=== PATIENT | female | born 1985 | race African-American/Black ===

== ENCOUNTER → 2018-03-04 | Outpatient (CLI) | payer BC ==
[~2018-03-04] MED LIST: BIOT1CAP8 PO; CETI10TA84 PO; DROS3TAB12 PO; ESCI1TAB6 PO; GLC500 PO; LORA-741 PO; PRED15SY16 PO
== END | disposition home or self-care (01) ==
LOC: C.RDSM 12:46
PROVIDERS: ATTEND Family Medicine
DX: M25.561 Pain in right knee (principal)

== ENCOUNTER → 2018-03-11 | Day surgery (SDC) | payer BC ==
[2018-03-04 14:27] VITALS: Ht 157.5 cm; Wt 116.4 kg
[~2018-03-11] VITALS: Ht 157.5 cm; Wt 116.4 kg
[~2018-03-11] MED LIST changes: -BIOT1CAP8 PO; -GLC500 PO; +LIDOCAINE HCL 2% 2 ML VIAL (20MG/ML) ONE; +ONDANSETRON INJ 2 MG/ML 2 ML VIAL IV PRN; -PRED15SY16 PO; +PROPOFOL IV EMULSION 10 MG/ML 20 ML VIAL ONE
--- NOTE | 2018-03-11 11:23 | Endo History and Physical ---
History & Physical Date of Service: Mar 11, 2018. Chief Complaint: history of polyps Referring Physician: Dr. Wright History of Present Illness Patient presents for a routine surveillance examination due to a personal history of colonic polyps. Her last examination was 5 years ago and appears to be within normal limits. She has no specific complaints or issues today. There is no family history of colorectal cancer stomach cancer or esophageal cancer. Past Surgical History Hx Cardiac Surgery: No Hx Internal Defibrillator: No Hx Pacemaker: No Hx Abdominal Surgery: No Hx of Implantable Prosthesis: No Hx Post-Op Nausea and Vomiting: Yes Hx Cancer Surgery: No Hx Thoracic Surgery: No Hx Orthopedic: Yes (L HAND SX) Hx Urinary Tract Surgery: No Family History Polyp Social History Smoking Status: Never Smoker Hx Substance Use: No Hx Alcohol Use: Yes (OCCASIONAL) Allergies Coded Allergies: NO KNOWN DRUG ALLERGIES (Verified Allergy, Unknown, none, 03/11/18) Current Medications Reported Home Medications Medications Dose Route/Sig Max Daily Dose Days Date Category Lamar 28 (Drospirenone-Ethinyl Estradiol) 1 Tab Tab 1 Tab PO HS 03/04/18 Reported Lexapro (Escitalopram Oxalate) 5 Mg Tab 5 Mg PO HS 03/04/18 Reported Zyrtec (Cetirizine HCl) 10 Mg Tab 10 Mg PO DAILY PRN 03/29/15 Reported Ativan (Lorazepam) 0.5 Mg Tab 0.5 Mg PO TID PRN 03/29/15 Reported Vital Signs Weight (Kilograms): 116.36 Height (Feet): 5 Height (Inches): 2 Date Time Temp Pulse Resp B/P (MAP) Pulse Ox O2 Delivery O2 Flow Rate FiO2 03/11/18 10:32 36.9 75 20 151/83 (105) 98 Room Air Physical Exam General Appearance: no apparent distress Respiratory/Chest: Auscultation: breath sounds normal Cardiovascular: Heart Auscultation: RRR Abdomen: Inspection & Palpation: soft Assessment and Plan Patient for colonoscopy today. We discussed the risks of the procedure to include perforation and missed colonic polyps.
--- NOTE | 2018-03-11 11:53 | Discharge Instructions ---
Endoscopy Patient Instructions Date / Procedure(s) Performed Mar 11, 2018. Colonoscopy Allergy Information Coded Allergies: NO KNOWN DRUG ALLERGIES (Verified Allergy, Unknown, none, 03/11/18) Discharge Date / Findings Mar 11, 2018. 1 colon polyp Nodular appearing ileocecal valve (biopsied) Medication Instructions Reported Home Medications Medications Dose Route/Sig Max Daily Dose Days Date Category Lamar 28 (Drospirenone-Ethinyl Estradiol) 1 Tab Tab 1 Tab PO HS 03/04/18 Reported Lexapro (Escitalopram Oxalate) 5 Mg Tab 5 Mg PO HS 03/04/18 Reported Zyrtec (Cetirizine HCl) 10 Mg Tab 10 Mg PO DAILY PRN 03/29/15 Reported Ativan (Lorazepam) 0.5 Mg Tab 0.5 Mg PO TID PRN 03/29/15 Reported Provider Instructions Activity Restrictions - No exercising or heavy lifting for 24 hours. - Do not drink alcohol the day of the procedure. - Do not drive a car or operate machinery until the day after the procedure. - Do not make any important decisions or sign important papers in 24 hours after the procedure. Following Day: - Return to full activity which may include returning to work/school. Diet Start your diet with liquids and light foods (jello, soup, juice, toast). Then eat your usual diet if not nauseated. Treatment For Common After Affects For mild abdominal pain, bloating, or excessive gas: - Rest - Eat lightly - Lie on right side Follow-Up Information Await pathology results, will most likely recommend a repeat examination in 5 years Anesthesia Information What You Should Know You have had a procedure that required some medicine to reduce anxiety and discomfort. This treatment is called moderate sedation. After receiving the treatment, you may be sleepy, but you will be able to breathe on your own. The effects of the treatment may last for several hours. Follow these instructions along with Activity/Diet recommendations noted above: * Do NOT do anything where dizziness or clumsiness would be dangerous. * Rest quietly at home today, then you can be up and about tomorrow. * Have a responsible person stay with you the rest of today. * You may have had an I.V. today. If so, you may take the dressing off later today. Recommendations Call your doctor if: * Trouble breathing * Continuous vomiting for more than 24 hours * Temperature above 101 degrees * Severe abdominal pain or bloating * Pain not relieved by pain medicine ordered * There is increased drainage or redness from any incision * A large amount of rectal bleeding greater than 2-3 tablespoons. (If you had a polyp/s removed or have hemorrhoids, a small amount of blood - from the rectum is to be expected.) * You have any unanswered questions or concerns. IN THE EVENT OF A SERIOUS EMERGENCY, GO TO THE NEAREST EMERGENCY ROOM Your discharge instructions were prepared by provider Kojo Lassiter. Patient Instructions Signature Page Zee Sadler Patient (or Guardian) Signature/Date: I have read and understand the instructions given to me by my caregivers. Caregiver/RN/Doctor Signature/Date: The above-named patient and/or guardian has received patient instructions on this date. + Original Patient Signature Page (only) stays with chart. Please make copy for patient.
--- NOTE | 2018-03-11 11:57 | GI REPORT ---
Patient Name: Zee Sadler Procedure Date: 03/11/2018 11:27 AM Date of : 1985 Admit Type: Outpatient Age: 32 Gender: Female Attending MD: Kojo Lassiter DO Procedure: Colonoscopy Providers: Kojo Lassiter DO Referring MD: Norma Wright Indications: High risk colon cancer surveillance: Personal history of colonic polyps Medicines: Monitored Anesthesia Care Complications: No immediate complications. Estimated blood loss: Minimal. Estimated Blood Loss: Estimated blood loss was minimal. Procedure: Pre-Anesthesia Assessment: - Prior to the procedure, a History and Physical was performed, and patient medications, allergies and sensitivities were reviewed. The patient's tolerance of previous anesthesia was reviewed. - The risks and benefits of the procedure and the sedation options and risks were discussed with the patient. All questions were answered and informed consent was obtained. - Patient identification and proposed procedure were verified prior to the procedure by the physician, the nurse and the hearing therapist. The procedure was verified in the procedure room. - Pre-procedure physical examination revealed no contraindications to sedation. - ASA Grade Assessment: II - A patient with mild systemic disease. - After reviewing the risks and benefits, the patient was deemed in satisfactory condition to undergo the procedure. - The anesthesia plan was to use monitored anesthesia care (MAC). - Immediately prior to administration of medications, the patient was re-assessed for adequacy to receive sedatives. - The heart rate, respiratory rate, oxygen saturations, blood pressure, adequacy of pulmonary ventilation, and response to care were monitored throughout the procedure. - The physical status of the patient was re-assessed after the procedure. After I obtained informed consent, the scope was passed under direct vision. Throughout the procedure, the patient's blood pressure, pulse, and oxygen saturations were monitored continuously. The scope was introduced through the anus and advanced to the terminal ileum. The colonoscopy was performed without difficulty. The patient tolerated the procedure well. The quality of the bowel preparation was good. Findings: The perianal and digital rectal examinations were normal. Pertinent negatives include normal sphincter tone. The retroflexed view of the distal rectum and anal verge was normal and showed no anal or rectal abnormalities. The terminal ileum appeared normal. The ileocecal valve appeared nodular, no obvious mass or polyp was sen. Biopsies were taken with a cold forceps for histology. Estimated blood loss was minimal. A 6 mm polyp was found in the transverse colon. The polyp was sessile. The polyp was removed with a cold snare. Resection and retrieval were complete. Estimated blood loss was minimal. The exam was otherwise without abnormality. Impression: - The distal rectum and anal verge are normal on retroflexion view. - The examined portion of the ileum was normal. - Nodular ileocecal valve (likely a normal varient). Biopsied. - One 6 mm polyp in the transverse colon, removed with a cold snare. Resected and retrieved. - The examination was otherwise normal. Recommendation: - Discharge patient to home (ambulatory). - Advance diet as tolerated today. - Await pathology results. - Repeat colonoscopy in 5 years for surveillance. Kojo Lassiter D.O. Kojo Lassiter, 03/11/2018 11:56:53 AM This report has been signed electronically. Note Initiated On: 03/11/2018 11:27 AM Number of Addenda: 0 I attest to the content of the Intraoperative Record and orders documented therein, exceptions below {[id number]}
--- NOTE | 2018-03-11 12:18 | Anesthesiology Progress Note ---
Anesthesia Post Op Note Date & Time Mar 11, 2018 at 12:18 Vital Signs Pain Intensity: 0 Vital Signs Past 12 Hours Date Time Temp Pulse Resp B/P (MAP) Pulse Ox O2 Delivery O2 Flow Rate FiO2 03/11/18 12:07 75 20 145/73 (97) 98 Room Air 03/11/18 11:53 36.5 76 20 143/66 (91) 98 Room Air 03/11/18 10:32 36.9 75 20 151/83 (105) 98 Room Air Notes Mental Status: alert / awake / arousable, participated in evaluation Pt Amnestic to Procedure: Yes Nausea / Vomiting: adequately controlled Pain: adequately controlled Airway Patency, RR, SpO2: stable & adequate BP & HR: stable & adequate Hydration State: stable & adequate Anesthetic Complications: no major complications apparent
[2018-03-11 12:23] VITALS: BP 146/79; PULSE 68; O2SAT 99
== END | disposition home or self-care (01) ==
LOC: C.GI 09:47
PROVIDERS: ATTEND Internal Medicine Gastroenterology
DX: Z12.11 Encounter for screening for malignant neoplasm of colon (principal); D12.3 Benign neoplasm of transverse colon; G47.33 Obstructive sleep apnea (adult) (pediatric); F41.9 Anxiety disorder, unspecified; E66.9 Obesity, unspecified; Z79.899 Other long term (current) drug therapy; Z86.010 Personal history of colon polyps